=== PATIENT | female | born 1990 | race Caucasian/White ===

== ENCOUNTER 2018-03-25 18:51 | Outpatient (CLI) | END 2018-03-25 21:04 | disposition home or self-care (01) ==

== ENCOUNTER 2018-04-21 13:27 | Inpatient (IN) | payer OTHER ==
[~2018-04-21] VITALS: Ht 167.6 cm; Wt 78.5 kg
[2018-04-21] MEDS: MISOPROSTOL 50 MCG CAPSULE PO SCH ×2 (01:00→20:37)
[~2018-04-21 13:27] MED LIST: FER325 PO; PREN-93 PO
[2018-04-21 13:51] VITALS: Ht 167.6 cm; Wt 78.5 kg
[2018-04-21 13:52] VITALS: BP 115/83; PULSE 75; RESP 18
--- NOTE | 2018-04-21 15:49 | TRIAGE ---
OB Triage Datetime Report Generated by CPN: 04/21/2018 15:49 Datetime: 04/21/2018 13:55 Time of Arrival: 04/21/2018 13:25 EGA: 40.0 Arrived By: Ambulatory Arrived From: Home Chief Complaint: HERE FOR DECREASED MOVEMENT Movement: Decreased Rupture of Membranes: Denies Vaginal Bleeding: None Vaginal Discharge: Denies Recent Sexual Intercouse: Denies Abdominal Trauma: Not Applicable Patient Complaints: Other Provider Notified: DR CORDERO Initial Plan: EFM,BPP EFW Maternal Assessment Level of Consciousness: Fully Conscious DTR's/Clonus: DTRs 2+; No Clonus Headache: Denies Blurred Vision: No Respiratory Effort: Unlabored; Regular Rhythm; Equal Expansion Breath Sounds, Left: Clear and Equal Breath Sounds, Right: Clear and Equal Nausea/Vomiting: Denies RUQ Epigastric Pain: Denies Facial Edema: None Temperature Route: Axillary Fall Risk Assessment History of Falling: (0) No Secondary Diagnosis: (0) No Ambulatory Aid: (0) Bedrest/Nurse Assist IV Therapy: (0) No Gait: (0) Normal/Bedrest/Immobile Mental Status: (0) Oriented to Own Ability Fall Score: 0 Fall Risk Score Definition: No Risk: No action required Datetime: 04/21/2018 13:44 Maternal Assessment Level of Consciousness: Fully Conscious DTR's/Clonus: DTRs 2+ Headache: Denies Blurred Vision: No Nausea/Vomiting: Denies RUQ Epigastric Pain: Denies Facial Edema: None Labor Evaluation Frequency: IRREG Monitor Mode: External Quality: Mild Pattern: Normal: <= 5 Contractions in 10 Minutes Resting Tone [place]: Relaxed Heart Rate FHR Baseline Rate: 145 Monitor Mode: External US FHR Baseline Changes: No Baseline Change Variability: Moderate 6-25 bpm Accelerations: 10X10 Decelerations: None Category: Category I Pain Assessment Pain Scale: 0 Pain Presence: Intermittent Pain Type: Cramping Pain Location: Abdomen Pain Goal: 0 Vaginal Exam Membrane Status: Intact Datetime: 03/25/2018 19:27 EGA: 36.1 Datetime: 03/25/2018 19:26 Fall Score: 0 Fall Risk Score Definition: No Risk: No action required
[2018-04-21] MEDS ORDERED: BUTORPHANOL 2 MG INJ IV PRN (16:00)
[2018-04-21] MEDS ORDERED: OXYTOCIN 30 UNITS/LR 500 ML IV PRN (16:00)
[2018-04-21] MEDS ORDERED: CARBOPROST 250 MCG INJ IM PRN (16:00)
[2018-04-21] MEDS ORDERED: MISOPROSTOL 200 MCG TAB PR PRN (16:00)
[2018-04-21] MEDS ORDERED: METHYLERGONOVINE 0.2 MG INJ IM PRN (16:00)
[2018-04-21] MEDS ORDERED: IBUPROFEN 600 MG TAB PO PRN (16:00)
[2018-04-21] MEDS ORDERED: AMPICILLIN 2 GM/NS (PMX) 100 ML IV ONE (16:00)
[2018-04-21] MEDS ORDERED: OXYTOCIN 30 UNITS/LR 500 ML IV SCH (16:00)
[2018-04-21] MEDS ORDERED: BUTORPHANOL 1 MG INJ IV PRN (16:00)
[2018-04-21] MEDS ORDERED: LIDOCAINE 1% (MPF) 30 ML INJ INJ PRN (16:00)
--- NOTE | 2018-04-21 17:28 | HP ---
Date/Time of Note Date/Time of Note DATE: 04/21/18 TIME: 17:26 OB - History Hx of Present Free Text/Dictation @40+wks GA : 1 Para: 0 Care: Good Care Ultrasounds: Normal mid trimester US Obstetrical Complications: None Medical Complications: None Past Family/Social History * Past Medical, Surgical, Family and Obstetric Histories reviewed from chart. OB Admission Exam Vital Signs Vital Signs Vital Signs Date Temp Pulse Resp B/P (MAP) Pulse Ox O2 O2 Flow FiO2 Time Delivery Rate 04/21/18 97.8 75 18 115/83 Room Air 13:52 (94) Physical Exam Abdomen: WNL Extremities: Normal Membranes: Intact Heart Rate: 140's Accelerations: Accelerations Present Decelerations: No Decelerations Varibility: Moderate Contractions on Admission: 6-10 Minutes Apart Last 72 hours Lab Results CBC & BMP 04/21/18 16:07 OB Assessment/Plan Reason for admission: observation Plan: Expectant Management JEFFERSON TRAN M.D. Apr 21, 2018 17:28
[2018-04-21] MEDS: LACTATED RINGER'S 1,000 ML IV SCH (17:33)
[2018-04-21] MEDS ORDERED: MISOPROSTOL 50 MCG CAPSULE VAG ONE (18:30)
[2018-04-22] MEDS: LACTATED RINGER'S 1,000 ML IV* SCH (00:29)
[2018-04-22] MEDS: LACTATED RINGER'S 1,000 ML IV SCH ×5 (00:40→15:59)
[2018-04-22] MEDS: AMPICILLIN 1 GM/NS (PMX) 50 ML IV SCH ×6 (00:40→15:59)
[2018-04-22] MEDS ORDERED: MINERAL OIL LIGHT 10 ML VIAL TOP ONE (01:00)
[2018-04-22] MEDS: MISOPROSTOL 50 MCG CAPSULE PO SCH (05:00)
[2018-04-22] MEDS ORDERED: OXYTOCIN 30 UNITS/LR 500 ML IV SCH (07:00)
--- NOTE | 2018-04-22 07:45 | QN ---
Documentation Comment NST reassuring option of c/s and EFW on sono d/w pt. she is very motivated to have 4-5 cm, intact start Pitocin ANAND PANTOJA MD Apr 22, 2018 07:45
[2018-04-22] MEDS ORDERED: FENTAnyl 2MCG/ML-ROPIV 0.2% 100 ML ONE (11:46)
--- NOTE | 2018-04-22 11:56 | PREAC ---
Date/Time of Note Date/Time of Note DATE: 04/22/18 TIME: 11:55 Anesthesia Eval and Record Evaluation Time Pre-Procedure Interview DATE: 04/22/18 TIME: 11:55 Age 27 Sex female NPO: 8 hrs Preoperative diagnosis Labor Pain Planned procedure Labor Epidural Past Medical History Past Medical History: Includes : : (1), Para: (0), Gestational age: (40) Surgery & Anesthesia Issues No known issue Meds Anticoagulation: No Beta Saira within 24 hr: No Reason Beta Saira not given: Pt. not on B-Saira Reported Medications Ferrous Sulfate* (Ferrous Sulfate*) 325 Mg Tabec, 325 MG PO BID, TAB 03/25/18 Vit No.124/Iron/FA ( Vitamin Tablet) 1 Each Tablet, 1 EACH PO, TAB 03/25/18 Current Medications Lactated Ringer's 1,000 ml @ 125 mls/hr Q8H IV Last administered on 04/22/18at 06:24; Admin Dose 125 MLS/HR; Start 04/21/18 at 15:40 Ampicillin 50 ml @ 100 mls/hr Q4H IV Last administered on 04/22/18at 08:11; Admin Dose 100 MLS/HR; Start 04/21/18 at 20:00 Butorphanol Tartrate (Stadol) 1 mg Q2H PRN IV PAIN; Start 04/21/18 at 16:00 Butorphanol Tartrate (Stadol) 2 mg Q2H PRN IV PAIN; Start 04/21/18 at 16:00 Lidocaine (Xylocaine 1% (Mpf)) 30 ml ONCE PRN INJ EPISIOTOMY; Start 04/21/18 at 16:00 Oxytocin/Lactated Ringer's 500 ml @ 500 mls/hr ONCE POST IV ; Start 04/21/18 at 16:00 Oxytocin/Lactated Ringer's 500 ml @ 125 mls/hr POST IV ; Start 04/21/18 at 16:00 Ibuprofen (Motrin) 600 mg ONCE PRN PO PAIN LEVEL 1-5; Start 04/21/18 at 16:00 Oxytocin/Lactated Ringer's 500 ml @ 0 mls/hr ONCE PRN IV VAGINAL BLEEDING; Start 04/21/18 at 16:00 Methylergonovine Maleate (Methergine) 0.2 mg ONCE PRN IM VAGINAL BLEEDING; Start 04/21/18 at 16:00 Carboprost Tromethamine (Hemabate) 250 mcg ONCE PRN IM VAGINAL BLEEDING; Start 04/21/18 at 16:00 Misoprostol (Cytotec) 1,000 mcg ONCE PRN IN VAGINAL BLEEDING; Start 04/21/18 at 16:00 Oxytocin/Lactated Ringer's 500 ml @ 0 mls/hr FOR AUGMENTATION IV Last administered on 04/22/18at 07:00; Admin Dose 1 MLS/HR; Start 04/22/18 at 07:00 Meds reviewed: Yes Allergies Coded Allergies: No Known Allergy (Unverified , 03/25/18) Allergies Reviewed: Yes Labs/Studies Labs Reviewed: Reviewed by anesthesiologist Result Diagram: 04/21/18 1607 Laboratory Tests 04/21/18 16:07 Blood Bank Test 04/21/18 16:07 Antibody Screen NEGATIVE Blood Type B POSITIVE Rh Immune Globulin Candidate NO test: Positive Studies: ECG (n/a), CXR (n/a) Pre-procedure Exam Last vitals Vital Signs Date Temp Pulse Resp B/P (MAP) Pulse Ox O2 O2 Flow FiO2 Time Delivery Rate 04/21/18 97.8 75 18 115/83 Room Air 13:52 (94) Airway: Adequate mouth opening, Adequate thyromental dist Mallampati: Mallampati II Teeth: Normal Lung: Normal Heart: Normal ASA Physical Status ASA physical status: 2 Emergency: None Planned Anesthetic Neuraxial: Epidural Planned Pain Management Epidural Pre-operative Attestations Prior to commencing anesthesia and surgery, the patient was re-evaluated, there was verification of: *The patient's identity *The results of appropriate recent lab work and preoperative vital signs *The above evaluation not changing prior to induction *Anesthetic plan, risk benefits, alternative and complications discussed with patient/family; questions answered; patient/family understands, accepts and wishes to proceed. COURT RITTER MD Apr 22, 2018 11:56
--- NOTE | 2018-04-22 11:58 | PAC ---
Date/Time of Note Date/Time of Note DATE: 04/22/18 TIME: 11:57 Post-Anesthesia Notes Post-Anesthesia Note Last documented vital signs Vital Signs Date Temp Pulse Resp B/P (MAP) Pulse Ox O2 O2 Flow FiO2 Time Delivery Rate 04/22/18 97.8 75 18 115/83 100 Room Air 12:02 (94) Activity: WNL Respiratory function: WNL Cardiovascular function: WNL Mental status: Baseline Pain reasonably controlled: Yes Hydration appropriate: Yes Nausea/Vomiting absent: Yes COURT RITTER MD Apr 22, 2018 11:58
[2018-04-22] MEDS ORDERED: NALOXONE (0.4 MG/ML) INJ IV PRN (12:00)
[2018-04-22] MEDS ORDERED: FENTAnyl 2MCG/ML-ROPIV 0.2% 100 ML BAG EPI SCH (12:00)
--- NOTE | 2018-04-22 20:16 | LDN ---
Date/Time of Note Date/Time of Note DATE: 04/22/18 TIME: 20:13 Delivery Summary 27 YO with IUP at 40.1 weeks. s/p of viable male with APGARS 8/9 . 2nd degree large vaginal and perineal laceration was repaired in normal fashion with 3-0 Vicryl. EBL 300 ml. placenta delivered intact and spontaneously. Placenta Delivered: Spontaneously Meconium: none Episiotomy: No Perineal laceration: 2 Laceration repair: in normal fashion Anesthesia type: Epidural Estimated blood loss: 300 Sponge & Needle done & correct: Yes All needle counts correct: Yes Any foreign bodies felt in the: No Infant Delivery Information Sex Sex: male Apgars 1 Minute: 8 5 Minute: 9 Suctioning Nose & mouth suctioned at [place]: No Delee suction performed: No Umbilical Cord Umbilical cord with: 3 Vessels Cord presentations: no nuchal cord Cord Blood was obtained: Yes Mother & Baby Disposition Disposition Mom & Baby to Maternity; Good: Yes ANAND PANTOJA MD Apr 22, 2018 20:16
[2018-04-22] MEDS: OXYTOCIN 30 UNITS/LR 500 ML IV SCH (20:23)
[2018-04-22] MEDS ORDERED: DIPHENHYDRAMINE 50 MG INJ IV PRN (20:30)
[2018-04-22] MEDS ORDERED: SENNA/DOCUSATE NA (8.6MG/50MG) TAB PO PRN (20:30)
[2018-04-22] MEDS ORDERED: CARBOPROST 250 MCG INJ IM PRN (20:30)
[2018-04-22] MEDS ORDERED: LANOLIN HPA 1 PKT TOP PRN (20:30)
[2018-04-22] MEDS ORDERED: MAGNESIUM HYDROXIDE 30ML CUP PO PRN (20:30)
[2018-04-22] MEDS ORDERED: OXYTOCIN 30 UNITS/LR 500 ML IV PRN (20:30)
[2018-04-22] MEDS ORDERED: MISOPROSTOL 200 MCG TAB PR PRN (20:30)
[2018-04-22] MEDS ORDERED: NA PHOSPHATE/BIPHOS 133 ML ENEMA PR PRN (20:30)
[2018-04-22] MEDS ORDERED: ONDANSETRON 4 MG TAB PO PRN (20:30)
[2018-04-22] MEDS ORDERED: DIPHENHYDRAMINE 25 MG CAP PO PRN (20:30)
[2018-04-22] MEDS ORDERED: WITCH HAZEL/GLYCERIN PAD PR PRN (20:30)
[2018-04-22] MEDS ORDERED: DIBUCAINE 1% 30 GM OINT TOP PRN (20:30)
[2018-04-22] MEDS ORDERED: HYDROCODONE/APAP (5/325) TAB PO PRN ×2 (20:30)
[2018-04-22] MEDS ORDERED: ONDANSETRON 4 MG INJ IV PRN (20:30)
[2018-04-22] MEDS ORDERED: BENZOCAINE 20% 56 ML SPRAY TOP PRN (20:30)
[2018-04-22 21:45] VITALS: BP 124/69; PULSE 81; RESP 18
[2018-04-22] MEDS: SENNA/DOCUSATE NA (8.6MG/50MG) TAB PO SCH (21:45)
[2018-04-22 22:05] VITALS: BP 109/59; PULSE 86; RESP 17
[2018-04-23] VITALS: BP 109/65; RESP 18
[2018-04-23] MEDS: OXYTOCIN 30 UNITS/LR 500 ML IV SCH (00:19)
[2018-04-23] MEDS: IBUPROFEN 600 MG TAB PO SCH ×5 (00:20→23:35)
[2018-04-23] MEDS: LACTATED RINGER'S 1,000 ML IV* SCH (04:30)
[2018-04-23 06:19] VITALS: BP 100/56; PULSE 69; RESP 17
[2018-04-23 08:30] VITALS: BP 90/53; PULSE 69; RESP 18
[2018-04-23] MEDS: SENNA/DOCUSATE NA (8.6MG/50MG) TAB PO SCH ×2 (09:32→20:30)
[2018-04-23 12:00] VITALS: BP 92/54; PULSE 76; RESP 16
[2018-04-23 15:49] VITALS: BP 98/52; PULSE 80; RESP 17
--- NOTE | 2018-04-23 20:06 | DS ---
Date/Time of Note Date/Time of Note DATE: 04/23/18 TIME: 20:05 Obstetrical Discharge Record Final Diagnosis Final Diagnosis: Term delivered Vaginal Delivery Obstetrical Delivery: Spontaneous Complications Augmentation: Yes Induction: Yes Condition on Discharge Physical Assessment Voiding: Yes Bowel Movement: Yes Breast: Soft, non-tender, Filling Fundus: Firm Abdomen and Incision: soft, not tender Calf Tenderness: No Patient Condition: Good ANAND PANTOJA MD Apr 23, 2018 20:06
[2018-04-23 20:15] VITALS: BP 103/63; PULSE 74; RESP 18
[2018-04-24 04:17] VITALS: BP 100/57; PULSE 67; RESP 18
[2018-04-24] MEDS: IBUPROFEN 600 MG TAB PO SCH (05:41)
[2018-04-24 08:00] VITALS: BP 107/71; PULSE 71; RESP 18
[2018-04-24] MEDS ORDERED: DIPHTH/TET/ACEL PERTUSS (ADULT) 0.5 ML VIAL IM* ONE (09:00)
[2018-04-24] MEDS ORDERED: VARICELLA VACCINE LIVE/PF 1,350 UNIT/0.5 ML ML SC* ONE (09:00)
[2018-04-24] MEDS ORDERED: MEASLES,MUMPS,RUBELLA VACCINE INJ SC* ONE (09:00)
[2018-04-24] MEDS: SENNA/DOCUSATE NA (8.6MG/50MG) TAB PO SCH (09:51)
== END 2018-04-24 11:45 | disposition home or self-care (01) | DRG 807 ==
LOC: L-D 13:27 → OBT 13:27 → L-D 15:30 → OBT 15:30 → L-D 17:17 → PP1 04-22 21:47
PROVIDERS: ADMIT Specialist; ATTEND Specialist
PROC: 10E0XZZ Delivery of Products of Conception, External Approach (ICD-10-PCS; principal; 2018-04-22)
PROC: 0KQM0ZZ Repair Perineum Muscle, Open Approach (ICD-10-PCS; 2018-04-22)
DX: O70.1 Second degree perineal laceration during delivery (principal); Z37.0 Single live birth; Z3A.40 40 weeks gestation of pregnancy
CPT/HCPCS: 36415; 36600; 62319; 76815; 76818; 82803; 85025; 85610; 85730; 86592; 86703; 86762; 86850; 86900; 86901; 87340; 90716; 99464; G0463; J0290; J2210; J2590; J3010; J7120